=== PATIENT | female | born 1950 | race African-American/Black ===

== ENCOUNTER 2021-06-18 12:06 | Emergency (ER) | payer MEDICARE, OTHER ==
[~2021-06-18] VITALS: Ht 160 cm; Wt 59.0 kg
[2021-06-18] MEDS ORDERED: ONDANSETRON HCL 4MG/2ML INJ IV STA (12:35)
[2021-06-18] MEDS ORDERED: MORPHINE SULFATE 4 MG/ML CPJ (NOT FOR IM USE) IV STA (12:35)
[2021-06-18] MEDS ORDERED: PIPERACILLIN/TAZ 3.375G PREMIX 50 ML IV ONE (12:45)
[2021-06-18] MEDS ORDERED: VANCOMYCIN 1G PREMIX 200 ML IV ONE (12:45)
[2021-06-18] MEDS ORDERED: SODIUM CHLORIDE 0.9% 1000ML BAG (SEPSIS BOLUS) IV ONE (12:45)
[2021-06-18 13:38] LABS: BASOPHILS % 0.7 % (0.0-2.0); EOSINOPHILS % 1.7 % (0.0-5.0); HEMATOCRIT. 39.4 % (36.0-48.0); HEMOGLOBIN. 13.1 g/dL (12.0-16.0); LYMPHOCYTES % 39.3 % (20.0-50.0); MEAN CORPUSCULAR HEMOGLOBIN 30.9 pg (28.0-32.0); MEAN CORPUSCULAR VOLUME 93.1 fL (81.0-99.0); MEAN PLATELET VOLUME 7.4 fl (7.4-10.4); NEUTROPHILS % 48.3 % (40.0-76.0); PLATELET 246 x1000/uL (130-400); RED BLOOD CELL COUNT 4.23 mill/uL (4.2-5.4); RED CELL DISTRIBUTION WIDTH 13.5 % (11.6-14.6)
[2021-06-18 13:44] LABS: CHLORIDE 114 mEq/L (98-107)
[2021-06-18 13:50] LABS: C REACTIVE PROTEIN QUANT 0.4 mg/L (0.0-3.0)
[2021-06-18] MEDS ORDERED: VANCOMYCIN 1GM PMX (XELLIA) 200 ML IV NR (14:30)
[2021-06-18 15:29] VITALS: BP 152/64
== END 2021-06-18 13:55 | disposition short-term general hospital (02) ==
LOC: ER 12:06
DX: L08.9 Local infection of the skin and subcutaneous tissue, unspecified (principal); F14.10 Cocaine abuse, uncomplicated; I10 Essential (primary) hypertension; Z98.890 Other specified postprocedural states
CPT/HCPCS: 36415; 71045; 73630; 80053; 83605; 84145; 85025; 86140; 87040; 93005; 96365; 96367; 96375; 99285; J2543; J3370; J7030

== ENCOUNTER 2021-07-22 11:02 | Emergency (ER) | payer MEDICARE, OTHER ==
[~2021-07-22] VITALS: Ht 162.6 cm; Wt 52.0 kg
[2021-07-22 11:05] VITALS: BP 173/75
== END 2021-07-22 15:52 | disposition home or self-care (01) ==
LOC: ER 11:02
DX: G56.31 Lesion of radial nerve, right upper limb (principal); I10 Essential (primary) hypertension; Z89.9 Acquired absence of limb, unspecified
CPT/HCPCS: 29125; 73100; 73110; 82962; 93005; 99284